=== PATIENT | female | born 1965 | race Hispanic/Latino ===

== ENCOUNTER 2017-05-21 08:22 | Outpatient (CLI) | payer OTHER | END 2017-05-21 08:23 | disposition home or self-care (01) | LOC: BICMAMMO 08:22 | PROVIDERS: ATTEND Internal Medicine | DX: Z12.31 Encounter for screening mammogram for malignant neoplasm of breast (principal); M81.0 Age-related osteoporosis without current pathological fracture; M85.88 Other specified disorders of bone density and structure, other site | CPT/HCPCS: 77063; 77067; 77080 ==

== ENCOUNTER 2019-02-24 10:54 | Outpatient (CLI) | payer OTHER ==
--- NOTE | 2019-02-24 12:00 | MMO ---
Bilateral MAMMO Bilat Screen [facility]. CLINICAL HISTORY: Patient is 53 years old and is seen for screening. The patient has no family history of breast cancer. The patient has no personal history of cancer. VIEWS: The views performed were: bilateral craniocaudal with tomosynthesis and bilateral mediolateral oblique with tomosynthesis. FILMS COMPARED: The present examination has been compared to prior imaging studies performed at [facility] on 04/18/2009, 09/20/2013 and 05/21/2017. This study has been interpreted with the assistance of computer-aided detection. MAMMOGRAM FINDINGS: The breasts are heterogeneously dense, which could obscure a lesion on mammography. There are no suspicious masses, suspicious calcifications, or new areas of architectural distortion. IMPRESSION: THERE IS NO MAMMOGRAPHIC EVIDENCE OF MALIGNANCY. A ROUTINE FOLLOW-UP MAMMOGRAM IN 1 YEAR IS RECOMMENDED. THE RESULTS OF THIS EXAM WERE SENT TO THE PATIENT. ACR BI-RADS Category 1 - Negative MAMMOGRAPHY NOTE: 1. A negative mammogram report should not delay a biopsy if a dominant of clinically suspicious mass is present. 2. Approximately 10% to 15% of breast cancers are not detected by mammography. 3. Adenosis and dense breasts may obscure an underlying neoplasm. Reported by: TRISTIN SALDANA MD Electonically Signed: [id number]
== END 2019-02-24 10:55 | disposition home or self-care (01) ==
LOC: BICMAMMO 10:54
PROVIDERS: ATTEND Physician Assistant
DX: Z12.31 Encounter for screening mammogram for malignant neoplasm of breast (principal)
CPT/HCPCS: 77063; 77067

== ENCOUNTER 2019-10-14 12:08 | Outpatient (CLI) | payer OTHER ==
--- NOTE | 2019-10-14 13:18 | RAD ---
LUMBAR SPINE 2 VIEWS: Date: 10/14/2019 HISTORY: Injury from a fall. FINDINGS: Mild disc osteophytosis. No acute fracture or dislocation. IMPRESSION: Mild lumbar spondylosis. POS: RRE
--- NOTE | 2019-10-14 13:20 | RAD ---
AP PELVIS 1 VIEW: HISTORY: Pain following injury from a fall. FINDINGS/IMPRESSION: Mild degenerative and osteoarthrosis changes of the sacroiliac joints and hip joints without acute fr acture or dislocation. POS: RRE
--- NOTE | 2019-10-14 13:20 | RAD ---
RIGHT HIP 2 VIEWS: Date: 10/14/2019 HISTORY: Osteopenia, injury from fall. FINDINGS/IMPRESSION: Mild degenerative and osteoarthrosis changes of the right hip joint. No acute fracture or dislocation . POS: RRE
== END 2019-10-14 12:09 | disposition home or self-care (01) ==
LOC: BICRAD 12:08
PROVIDERS: ATTEND Physician Assistant Medical
DX: M85.80 Other specified disorders of bone density and structure, unspecified site (principal); M54.5 Low back pain; M46.1 Sacroiliitis, not elsewhere classified; M16.11 Unilateral primary osteoarthritis, right hip; M47.816 Spondylosis without myelopathy or radiculopathy, lumbar region; W10.8XXA Fall (on) (from) other stairs and steps, initial encounter
CPT/HCPCS: 72100; 72170

== ENCOUNTER 2022-12-17 11:15 | Outpatient (CLI) | payer OTHER | END 2022-12-17 11:16 | disposition home or self-care (01) | LOC: BICRAD 11:15 | PROVIDERS: ATTEND Nurse Practitioner Family | DX: R05.9 Cough, unspecified (principal); R09.89 Other specified symptoms and signs involving the circulatory and respiratory systems | CPT/HCPCS: 71046 ==

== ENCOUNTER 2023-02-11 10:05 | Outpatient (CLI) | payer OTHER | END 2023-02-11 10:06 | disposition home or self-care (01) | LOC: BICMAMMO 10:05 | PROVIDERS: ATTEND Nurse Practitioner Family | DX: Z12.31 Encounter for screening mammogram for malignant neoplasm of breast (principal) | CPT/HCPCS: 77063; 77067 ==